=== PATIENT | male | born 1960 | race Caucasian/White ===

== ENCOUNTER 2019-03-31 10:49 | Day surgery (SDC) | payer MEDICARE, MEDICAID ==
[~2019-03-31 10:49] MED LIST: BUPIVACAINE HCL 0.75% INJ/PF (7.5 MG/1 ML) 10 ML SDV ONE; CHONDR SU A NA/HYALUR INTRAOC KIT (SURGICARE) ONE; EPINEPHRINE INJ/PF 1 MG/1 ML AMPULE ONE; HYALURONIDASE INJ 150 UNIT/1 ML VIAL ONE; KETOROLAC TROMETHAMINE 0.45% 4 DROP/0.4 ML DROPERETTE OD PRN; LIDOCAINE 1%/PHENYLEPHRINE 1.5% 1 ML VIAL ONE; LIDOCAINE 2% INJ-PF (20 MG/ML) 10 ML AMPUL ONE
[2019-03-31] MEDS ORDERED: ONDANSETRON HCL INJ/PF 4 MG/2 ML SDV ONE (11:07)
[2019-03-31] MEDS ORDERED: MIDAZOLAM 2 MG/2 ML INJ ONE (11:08)
[2019-03-31] MEDS ORDERED: FENTANYL CITRATE INJ/PF 100 MCG/2 ML AMPUL ONE (11:08)
[2019-03-31] MEDS: BESIFLOXACIN HCL 0.6% OPH SUSP 5 ML BOTTLE OD PRN ×4 (11:55→12:53)
[2019-03-31] MEDS: CYCLOPENTOLATE 0.2%/PHENYLEPHRINE 1% OPH SOLN 2 ML OD PRN ×3 (11:55→12:15)
[2019-03-31] MEDS: TROPICAMIDE 1% OPH SOLN 15 ML OD PRN ×3 (11:55→12:15)
[2019-03-31] MEDS: TETRACAINE HCL 0.5% OPH SOLN 4 ML OD PRN ×3 (11:56→12:18)
[2019-03-31] MEDS: CHONDR SU A NA/HYALUR SOD 0.5 ML DISP.SYRIN ONE ×2 (12:30→12:35)
[2019-03-31] MEDS: TRYPAN BLUE 0.06 % OPH SOLN 0.5 ML DISP.SYRIN ONE ×2 (12:30→12:33)
[2019-03-31] MEDS ORDERED: TRYPAN BLUE 0.06 % OPH SOLN 0.5 ML DISP.SYRIN ONE (12:32)
[2019-03-31] MEDS ORDERED: CHONDR SU A NA/HYALUR SOD 0.5 ML DISP.SYRIN ONE (12:40)
[2019-03-31] MEDS: TOBRAMYCIN SULFATE/DEXAMETH OPH OINTMENT 3.5 GM ONE ×2 (12:53)
[2019-03-31] MEDS: DORZOLAMIDE HCL 2%/TIMOLOL MALEAT 0.5% OPH SOLN 10 ML OD PRN ×2 (12:53)
[2019-03-31] MEDS ORDERED: PROPOFOL INJ 200 MG/20 ML VIAL IV ONE (13:01)
[2019-03-31] MEDS ORDERED: LIDOCAINE 2% INJ-PF (100 MG/5 ML) SYRINGE ONE (13:01)
--- NOTE | 2019-03-31 13:14 | Operative Report ---
Operative Report-[facility] Operative Report: DATE OF SURGERY: 05/31/2018 PREOPERATIVE DIAGNOSIS: Cataract, right eye, MAture POSTOPERATIVE DIAGNOSIS: Cataract, right eye, Mature OPERATION: Complex Cataract extraction with insertion of an IOL of the right eye and use of trypan blue dye Intraocular Lens Model: [21.0 sn60wf] Reason for surgery was difficulty seeing in the distance for TV SURGEON: Noel uRggiero MD ANESTHESIA: Topical and retrobulbar block 2% lidocaine, 0.75 % marcain, vitrase 50 units PROCEDURE: After obtaining appropriate consent, the patient's right eye was prepped and draped in a sterile fashion as well as the surgeon in the sterile manner and cataract surgery was started. First a paracentesis blade was used to make a side-port incision. Viscoelastic was used to inflate the anterior chamber. Next a 2.4 mm incision was made with a 2.4 mm blade, clear corneal temporarily. A continuous capsulorrhexis was made using a cystotome and Utrata forceps. Following this hydrodissection was carried out to make the lens fully loose and mobile and it was rotated freely. Following this, a divide and conquer technique was used to phacoemulsify the lens. The remaining cortex was removed with an irrigation/aspiration. Provisc was instilled into the capsular bag to inflate the bag. The intraocular lens was placed. The remaining viscoelastic material was removed with irrigation/aspiration. Following this, the incision was found to be watertight. Prior to making the capsulorhexis, trypan blue dye was used to stain the anterior capsule due to poor red reflex. Besivance and Cosopt was instilled into the eye and a protective shield was placed over the eye. tobradex ointment was placed with a pressure patch. The patient was returned to the postoperative recovery in a stable condition.
== END 2019-03-31 13:44 | disposition home or self-care (01) ==
LOC: SC 10:49
PROVIDERS: ATTEND Internal Medicine
DX: H25.89 Other age-related cataract (principal); H40.031 Anatomical narrow angle, right eye; Z79.899 Other long term (current) drug therapy; Z86.73 Personal history of transient ischemic attack (TIA), and cerebral infarction without residual deficits; I10 Essential (primary) hypertension; E11.9 Type 2 diabetes mellitus without complications; Z88.8 Allergy status to other drugs, medicaments and biological substances; Z79.02 Long term (current) use of antithrombotics/antiplatelets
CPT/HCPCS: 00142; 66984; C1729; V2632; J2250; J3490 ×6; A9270 ×2; J0171; J3010; J2001; J2405; J2704; J3470; J2370; 142

== ENCOUNTER 2019-06-23 10:16 | Day surgery (SDC) | payer MEDICARE, MEDICAID ==
[~2019-06-23 10:16] MED LIST changes: -BUPIVACAINE HCL 0.75% INJ/PF (7.5 MG/1 ML) 10 ML SDV ONE; -HYALURONIDASE INJ 150 UNIT/1 ML VIAL ONE; -KETOROLAC TROMETHAMINE 0.45% 4 DROP/0.4 ML DROPERETTE OD PRN; +KETOROLAC TROMETHAMINE 0.45% 4 DROP/0.4 ML DROPERETTE OS PRN; +LIDOCAINE 0.5% INJ-PF (5 MG/ML) 50 ML SDV SUBCUT PRN; -LIDOCAINE 2% INJ-PF (20 MG/ML) 10 ML AMPUL ONE; +RINGERS SOLUTION,LACTATED 500 ML IV PRN; +TRYPAN BLUE 0.06 % OPH SOLN 0.5 ML DISP.SYRIN ONE
[2019-06-23] MEDS: TETRACAINE HCL 0.5% OPH SOLN 4 ML OS PRN ×3 (11:11→12:55)
[2019-06-23] MEDS: BESIFLOXACIN HCL 0.6% OPH SUSP 5 ML BOTTLE OS PRN ×4 (11:11→13:20)
[2019-06-23] MEDS: TROPICAMIDE 1% OPH SOLN 15 ML OS PRN ×3 (11:11→11:29)
[2019-06-23] MEDS: CYCLOPENTOLATE 0.2%/PHENYLEPHRINE 1% OPH SOLN 2 ML OS PRN ×3 (11:11→11:29)
[2019-06-23] MEDS ORDERED: MIDAZOLAM 2 MG/2 ML INJ ONE (12:03)
[2019-06-23] MEDS ORDERED: LIDOCAINE 2% INJ (20 MG/ML) 20 ML MDV ONE (12:39)
[2019-06-23] MEDS ORDERED: BUPIVACAINE HCL 0.75% INJ/PF (7.5 MG/1 ML) 10 ML SDV ONE (12:39)
[2019-06-23] MEDS ORDERED: PROPOFOL INJ 200 MG/20 ML VIAL IV ONE (12:40)
[2019-06-23] MEDS ORDERED: HYALURONIDASE INJ 150 UNIT/1 ML VIAL ONE (12:41)
[2019-06-23] MEDS ORDERED: TOBRAMYCIN SULFATE/DEXAMETH OPH OINTMENT 3.5 GM ONE (13:18)
[2019-06-23] MEDS: DORZOLAMIDE HCL 2%/TIMOLOL MALEAT 0.5% OPH SOLN 10 ML OS PRN ×2 (13:20)
--- NOTE | 2019-06-24 07:31 | Operative Report ---
Operative Report-[facility] Operative Report: DATE OF SURGERY: [06/23/19] PREOPERATIVE DIAGNOSIS: Cataracts, left eye MAture POSTOPERATIVE DIAGNOSIS: Cataract, left eye MAture OPERATION:Complex Cataract extraction with insertion of an IOL of the left eye anduse of trypan blue dye Intraocular Lens Model: [] Patient underwent surgery because her having imbalance feeling between both eyes and he was unable to see the computer or at distance SURGEON: Noel Ruggiero MD ANESTHESIA: Topical and retrobulbar block of 2% lidocaine 0.75% Marcaine and 50 units of vitrase PROCEDURE: After obtaining appropriate consent, the patient's left eye was prepped and draped in a sterile fashion as well as the surgeon in the sterile manner and cataract surgery was started. First a paracentesis blade was used to make a side-port incision. Viscoelastic was used to inflate the anterior chamber. Next a 2.4 mm incision was made with a 2.4 mm blade, clear corneal temporarily. Due to a mature white cataract with poor visualization of the anterior capsule trypan blue dye was used to stain the anterior capsule .A continuous capsulorrhexis was made using a cystotome and Utrata forceps. Following this hydrodissection was carried out to make the lens fully loose and mobile and it was rotated 90 degrees. Following this, a divide and conquer technique was used to phacoemulsify the lens. The remaining cortex was removed with an irrigation/aspiration. Provisc was instilled into the capsular bag to inflate the bag.The intraocular lens was placed. The remaining viscoelastic material was removed with irrigation/aspiration. Following this, the incision was found to be watertight. Besivance and Cosopt was instilled into the eye and a protective shield was placed over the eye. The patient was returned to the postoperative recovery in a stable condition.
== END 2019-06-23 14:11 | disposition home or self-care (01) ==
LOC: SC 10:16
PROVIDERS: ATTEND Internal Medicine
DX: H25.89 Other age-related cataract (principal); Z96.1 Presence of intraocular lens; H40.89 Other specified glaucoma; E11.9 Type 2 diabetes mellitus without complications; I10 Essential (primary) hypertension; Z88.8 Allergy status to other drugs, medicaments and biological substances; Z79.899 Other long term (current) drug therapy; Z79.02 Long term (current) use of antithrombotics/antiplatelets; Z86.73 Personal history of transient ischemic attack (TIA), and cerebral infarction without residual deficits
CPT/HCPCS: 66982; 00142; V2632; J3490 ×5; A9270 ×2; J0171; J2704; J3470; J2370; 142; J2250